=== PATIENT | female | born 1970 | race Caucasian/White ===

== ENCOUNTER → 2023-12-22 11:21 | Outpatient (REF) | payer BC, SELFPAY | LOC: RCS 11:21 | PROVIDERS: ATTENDING PHYSICIAN Obstetrics & Gynecology Gynecologic Oncology; FAMILY PHYSICIAN Physician Assistant Medical | DX: D07.1 Carcinoma in situ of vulva (principal) | CPT/HCPCS: 76856; 93005 ==